=== PATIENT | male | born 2005 | race Asian ===

== ENCOUNTER 2023-11-29 03:13 | Outpatient (CLI) | payer OTHER, SELFPAY | END 2023-11-29 03:14 | disposition home or self-care (01) | LOC: AMB 12-02 12:17 | PROVIDERS: Visit Provider Family Medicine | DX: F10.129 Alcohol abuse with intoxication, unspecified (principal) | CPT/HCPCS: A0425; A0427 ==

== ENCOUNTER 2023-11-29 03:43 | Emergency (ER) | payer OTHER, SELFPAY ==
[2023-11-29 03:45] VITALS: O2SAT 99
[2023-11-29 03:46] VITALS: BP 117/78; PULSE 83; RESP 15; TEMP 36.5; O2SAT 100; BMI 21.6
--- NOTE | 2023-11-29 03:59 | ED_ITS ---
HPI - General Adult General Chief complaint: Alcohol/Intoxication Stated complaint: Etoh Time Seen by Provider: 11/29/23 03:49 History of Present Illness HPI narrative: 18yo male arrives for intoxication, pt denies any recreational substances. EMS started 500NS and 4 zofran IV , no vomiting or nausea. pt denies any pain . pt found laying on couch intoxicated in lounge by security, pt unable to walk back to dorm room by self so they called ems. 18-year-old and man brought by EMS to the emergency department with concern of alcohol intoxication. He has not been vomiting and denies nausea. EMS initiated normal saline and Zofran. He denies any pain or injury. He denies loss of consciousness. Had been drinking with friends. He admits to being given vodka, he thinks. Apparently was found on a couch in a lounge by a campus security. He was unable to walk himself back to his dorm room and so EMS was called. Reese is apologetic. So sorry to bother you seems embarrassed. Denies any other substances/ingestion. Related Data Home Medications Medication Instructions Recorded Confirmed No Known Home Medications 11/29/23 11/29/23 Allergies Allergy/AdvReac Type Severity Reaction Status Date / Time No Known Drug Allergies Allergy Verified 11/29/23 03:51 Review of Systems Status of ROS: Reports: 6 or more systems reviewed and unremarkable except as noted in History and below [facility] Social History Smoking Status: Never smoker Do you use any of these nicotine containing products: None How often do you have a drink containing alcohol: never AUDIT-C Alcohol total score: 0 Non-prescribed substance use: denies use Exam Narrative: Exam Narrative: Quiet. Opens eyes for conversation but then closes them as if he just does not feel very good. Looks like he does not feel very well. Appears moderately intoxicated. GCS 14. Pupils are equal. Subtle nystagmus? Breathing easily. Supporting own airway. Head is atraumatic. Oropharynx is a little sticky. Neck is supple nontender. Back also without evidence of injury. Nontender. Lungs are clear. Heart in regular rate and rhythm without murmur rub or gallop. Abdomen is soft and nontender. Moving all extremities without difficulty. Skin generally without evidence of injury. Const: Vital Signs, click to edit/add: Vital Signs - 24 hr 11/29/23 03:46 Temperature 97.7 F Pulse Rate [Pulse Oximeter] 83 Respiratory Rate 15 Blood Pressure [Ri ght Upper Arm] 117/78 Pulse Oximetry 100 Oxygen Delivery Me thod Room Air Documenting provider has reviewed patient's vital signs: yes Course Vital Signs Vital signs: Initial Vital Signs Pulse Oximetry 99 11/29/23 03:45 Vital Signs Pulse Oximetry 99 11/29/23 03:45 Temperature 97.7 F 11/29/23 04:32 Pulse Rate 85 11/29/23 04:32 Respiratory Rate 16 11/29/23 04:32 Blood Pressure 120/74 11/29/23 04:32 Pulse Oximetry 100 11/29/23 04:24 Oxygen Delivery Method Room Air 11/29/23 04:24 Medical Decision Making MDM Narrative Medical decision making narrative: Does appear moderately intoxicated. Receiving IV fluids. Would monitor here in the emergency department until clearly able to ambulate and has verified then no respiratory difficulty. Does not appear to have any injury that would require further evaluation at this time. Once walking and talking, anticipate transfer via public safety back to campus. See patient discharge plan Discharge Plan Discharge Clinical Impression: Alcohol intoxication Patient Disposition: Home w/ Parent or Adult Condition: Improved Additional Instructions: Should you choose to drink, please be more careful. Prescriptions: No Action No Known Home Medications Stand Alone Forms: [email or web address] Info Instructions
[2023-11-29 04:24] VITALS: BP 120/74; PULSE 85; RESP 16; TEMP 36.5; O2SAT 100
[2023-11-29 04:32] VITALS: BP 120/74; PULSE 85; RESP 16; TEMP 36.5
--- NOTE | 2023-11-29 04:40 | ED.NURSE ---
patient up walking around ER steady gait IND, appropriate. pt dc via campus security.
== END 2023-11-29 04:40 | disposition home or self-care (01) ==
PROVIDERS: Emergency Provider Family Medicine
DX: F10.129 Alcohol abuse with intoxication, unspecified (principal)
CPT/HCPCS: 94761; 99283; 99284